=== PATIENT | female | born 1935 | race Caucasian/White ===

== ENCOUNTER 2020-04-23 11:51 | Outpatient (REF) | payer MEDICARE, MEDICAID, SELFPAY ==
--- NOTE | ~2020-04-23 | MM_ITS ---
EXAMINATION: MM SCREENING DIGITAL BREAST TOMOSYNTHESIS, BILATERAL CLINICAL INFORMATION: Screening. Asymptomatic. Age 84. COMPARISON: Mammography: 10/03/2018, 07/07/2017, 10/08/2016, 01/23/2016, 01/15/2016 TECHNIQUE: Digital breast tomosynthesis is performed in both the craniocaudal and mediolateral oblique views along with computer-aided detection (CAD). Synthesized 2D images are generated from the tomosynthesis. FINDINGS: There are scattered areas of fibroglandular density (ACR BI-RADS breast composition Category b). There are no significant changes from prior exams. Again, there is stable nodularity posterior central 6:00 left breast and central mid right breast. There is no developing density or interval mass or architectural abnormality. There are scattered punctate calcifications again seen in each breast. The axilla and skin contours are unremarkable. MM/MM tomosynthesis screening BI IMPRESSION: No significant changes from prior studies. ASSESSMENT: BI-RADS 2: Benign RECOMMENDATION: Routine annual mammography screening. This patient's information was entered into a reminder system with a target due date for their next mammogram.
== END 2020-04-23 11:52 | disposition home or self-care (01) ==
LOC: HO.MAMMO 11:51
PROVIDERS: Visit Provider Internal Medicine
DX: Z12.31 Encounter for screening mammogram for malignant neoplasm of breast (principal)
CPT/HCPCS: 77063; 77067

== ENCOUNTER 2021-05-06 13:20 | Outpatient (REF) | payer MEDICARE, SELFPAY ==
--- NOTE | ~2021-05-06 | MM_ITS ---
EXAMINATION: MM SCREENING DIGITAL BREAST TOMOSYNTHESIS, BILATERAL CLINICAL INFORMATION: Screening. Asymptomatic. COMPARISON: Mammography: 12/21/2020, 10/03/2018, 07/07/2017, 09/23/2016, 01/15/2016 TECHNIQUE: Digital breast tomosynthesis is performed in both the craniocaudal and mediolateral oblique views along with computer-aided detection (CAD). Synthesized 2D images are generated from the tomosynthesis. Additional left MLO view is provided. FINDINGS: There are scattered areas of fibroglandular density (ACR BI-RADS breast composition Category b). Parenchymal pattern is similar to prior studies. There are fibrocystic changes with stable nodularity again seen central 6:00 left breast and central right breast. There is no interval significant mass or architectural abnormality or abnormal calcifications. The axilla and skin contours are unremarkable. There are no significant changes from prior exams. MM/MM tomosynthesis screening BI IMPRESSION: No significant changes from prior studies. ASSESSMENT: BI-RADS 2: Benign RECOMMENDATION: Routine annual mammography screening. This patient's information was entered into a reminder system with a target due date for their next mammogram.
== END 2021-05-06 13:21 | disposition home or self-care (01) ==
LOC: HO.MAMMO 13:20
PROVIDERS: Visit Provider Internal Medicine
DX: Z12.31 Encounter for screening mammogram for malignant neoplasm of breast (principal)
CPT/HCPCS: 77063; 77067

== ENCOUNTER 2021-06-30 11:54 | Outpatient (REF) | payer MEDICARE, SELFPAY ==
[2021-06-30 12:12] LABS: MANUAL DIFF FLAG NO
[2021-06-30 13:25] LABS: Basophils Absolute Auto 0.1 X10*3/uL (0.0-0.2); Eosinophils Absolute Auto 0.2 X10*3/uL (0.0-0.4); Eosinophils Percent Auto 3.1 % (0-4); Hematocrit 43.5 % (37.0-47.0); Hemoglobin 13.9 g/dl (12.0-16.0); Imm Gran Abs Auto 0.01 X10*3/uL (0.00-0.03); Imm Gran Pct Auto 0.2 % (0.0-0.4); Lymphocytes Absolute Auto 1.8 X10*3/uL (1.2-4.9); Lymphocytes Percent Auto 30.5 % (20-40); Mean Corpuscular Hemoglobin 28.5 pg (27.0-33.0); Mean Corpuscular Volume 89.3 fL (80.0-98.0); Mean Platelet Volume 10.3 fL (9.4-12.3); Monocytes Absolute Auto 0.7 X10*3/uL (0.1-1.2); Monocytes Percent Auto 11.7 % (2-11); Neutrophils Absolute Auto 3.1 x10*3/uL (2.0-8.3); Neutrophils Percent Auto 53.5 % (45-73); Platelet Count 239 X10*3/uL (160-400); Red Blood Count 4.87 X10*6/uL (4.20-5.50); Red Cell Distribution Width 13.1 % (11.0-16.0); White Blood Count 5.8 X10*3/uL (4.8-10.8)
[2021-06-30 13:48] LABS: Alanine Aminotransferase 20 U/L (0-31); Albumin Level 4.2 g/dL (3.5-5.0); Alkaline Phosphatase 69 U/L (39-117); Anion Gap 14 (12-20); Aspartate Amino Transferase 26 U/L (5-31); Bilirubin Total 0.5 mg/dL (0.0-1.0); Blood Urea Nitrogen 17 mg/dL (9-16); Calcium 9.7 mg/dL (8.4-10.2); Carbon Dioxide 27 mmol/L (22-29); Chloride 102 mmol/L (96-108); Cholesterol 223 mg/dL; Estimated Glomerular Filt Rate 54; Glucose Fasting 92 mg/dL (60-99); HDL Cholesterol 57 mg/dL; LDL Cholesterol Calculated 139 mg/dl; Potassium 4.4 mmol/L (3.3-5.1); Sodium 139 mmol/L (135-145); Total Protein 7.3 g/dL (6.5-8.0); Triglycerides 139 mg/dL
== END 2021-06-30 11:55 | disposition home or self-care (01) ==
LOC: HO.LAB 11:54
PROVIDERS: PCP Internal Medicine; Visit Provider Internal Medicine
DX: Z00.00 Encounter for general adult medical examination without abnormal findings (principal); E11.9 Type 2 diabetes mellitus without complications
CPT/HCPCS: 36415; 80053; 80061; 85025

== ENCOUNTER 2021-11-03 12:31 | Outpatient (REF) | payer MEDICARE, SELFPAY ==
[2021-11-03 13:05] VITALS: BP 204/93; PULSE 67; RESP 16; TEMP 36.6; O2SAT 98; BMI 17.7
== END 2021-11-03 12:32 | disposition home or self-care (01) ==
LOC: HO.MS 12:31
PROVIDERS: Visit Provider Ophthalmology
PROC: (CPT 66821; principal; 2021-11-03 14:40)
DX: H26.492 Other secondary cataract, left eye (principal); H35.032 Hypertensive retinopathy, left eye; I10 Essential (primary) hypertension; E78.5 Hyperlipidemia, unspecified; Z79.899 Other long term (current) drug therapy
CPT/HCPCS: 66821

== ENCOUNTER 2022-04-02 10:19 | Outpatient (REF) | payer MEDICARE, SELFPAY ==
[2022-04-02 10:32] LABS: MANUAL DIFF FLAG NO
[2022-04-02 11:06] LABS: Basophils Percent Auto 0.7 % (0-2); Eosinophils Absolute Auto 0.1 X10*3/uL (0.0-0.4); Eosinophils Percent Auto 2.4 % (0-4); Hematocrit 43.4 % (37.0-47.0); Imm Gran Abs Auto 0.02 X10*3/uL (0.00-0.03); Imm Gran Pct Auto 0.3 % (0.0-0.4); Lymphocytes Absolute Auto 1.6 X10*3/uL (1.2-4.9); Lymphocytes Percent Auto 27.6 % (20-40); Mean Corpuscular HGB Conc 32.3 g/dl (31.0-35.0); Mean Corpuscular Hemoglobin 28.5 pg (27.0-33.0); Mean Corpuscular Volume 88.4 fL (80.0-98.0); Mean Platelet Volume 9.7 fL (9.4-12.3); Monocytes Absolute Auto 0.5 X10*3/uL (0.1-1.2); Monocytes Percent Auto 9.3 % (2-11); Neutrophils Absolute Auto 3.4 x10*3/uL (2.0-8.3); Neutrophils Percent Auto 59.7 % (45-73); Platelet Count 237 X10*3/uL (160-400); Red Blood Count 4.91 X10*6/uL (4.20-5.50); Red Cell Distribution Width 12.6 % (11.0-16.0); White Blood Count 5.7 X10*3/uL (4.8-10.8)
[2022-04-02 11:40] LABS: Alanine Aminotransferase 20 U/L (0-31); Albumin Level 4.1 g/dL (3.5-5.0); Alkaline Phosphatase 89 U/L (39-117); Anion Gap 9 (12-20); Aspartate Amino Transferase 27 U/L (5-31); Bilirubin Total 0.7 mg/dL (0.0-1.0); Blood Urea Nitrogen 19 mg/dL (9-16); Calcium 9.4 mg/dL (8.4-10.2); Carbon Dioxide 29 mmol/L (22-29); Chloride 104 mmol/L (96-108); Cholesterol 238 mg/dL; Estimated Glomerular Filt Rate 55; Glucose Fasting 89 mg/dL (60-99); HDL Cholesterol 52 mg/dL; LDL Cholesterol Calculated 160 mg/dl; Potassium 4.2 mmol/L (3.3-5.1); Sodium 138 mmol/L (135-145); Total Protein 7.1 g/dL (6.5-8.0); Triglycerides 134 mg/dL
[2022-04-02 11:58] LABS: Thyroid Stimulating Hormone 1.16 uIU/mL (0.32-4.0)
== END 2022-04-02 10:20 | disposition home or self-care (01) ==
LOC: HO.LAB 10:19
PROVIDERS: PCP Internal Medicine; Visit Provider Internal Medicine
DX: E03.9 Hypothyroidism, unspecified (principal); E78.5 Hyperlipidemia, unspecified; N28.9 Disorder of kidney and ureter, unspecified; D64.9 Anemia, unspecified
CPT/HCPCS: 36415; 80053; 80061; 84443; 85025

== ENCOUNTER 2022-05-14 11:48 | Outpatient (REF) | payer MEDICARE, SELFPAY ==
--- NOTE | ~2022-05-14 | MM_ITS ---
EXAMINATION: MM SCREENING DIGITAL BREAST TOMOSYNTHESIS, BILATERAL CLINICAL INFORMATION: Screening. Asymptomatic. COMPARISON: Mammography: 05/06/2021 and studies dating back to 10/30/2014. TECHNIQUE: Digital breast tomosynthesis is performed in both the craniocaudal and mediolateral oblique views along with computer-aided detection (CAD). Synthesized 2D images are generated from the tomosynthesis. FINDINGS: There are scattered areas of fibroglandular density (ACR BI-RADS breast composition Category b). There are no new significant masses, abnormal calcifications, or other abnormalities. There has been waxing and waning of circumscribed densities bilaterally consistent with cysts with no new suspicious dominant mass or grouping of microcalcifications. MM/MM tomosynthesis screening BI IMPRESSION: No significant change. ASSESSMENT: BI-RADS 2: Benign. RECOMMENDATION: Routine annual mammography screening. This patient's information was entered into a reminder system with a target due date for their next mammogram.
== END 2022-05-14 11:49 | disposition home or self-care (01) ==
LOC: HO.MAMMO 11:48
PROVIDERS: PCP Internal Medicine; Visit Provider Internal Medicine
DX: Z12.31 Encounter for screening mammogram for malignant neoplasm of breast (principal)
CPT/HCPCS: 77063; 77067

== ENCOUNTER 2022-09-24 10:36 | Outpatient (AMB) | payer MEDICARE, SELFPAY ==
[2022-09-24 10:38] VITALS: BP 140/82; PULSE 62; O2SAT 98; BMI 22.6
--- NOTE | 2022-09-24 10:38 | MHC.PC.OV ---
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 Accompanied by: Self / Same As Patient Allergies Sulfa (Sulfonamide Antibiotics) Allergy (Unknown, Verified 09/24/22 10:39) Unknown Medication List - Last Reconciled 09/24/22 by Bipin Dai MD duloxetine 20 mg PO DAILY lisinopril 10 mg PO DAILY metoprolol tartrate 12.5 mg (1/2 x 25 mg) PO Q12H Tobacco use date assessed: 09/24/22 Fall risk assessment: 1 Fall in past year Last assessed Fall Risk: 09/24/22 Dental Screening Dental Screen Date: 09/24/22 Did you have a dental visit in the last 12 months?: No Did you have a dental problem in the last 6 months where you did not have access to dental care?: No Was dental information given to patient?: No HPI 6mth f/u HPI Details HTN on Rx; doing well PFSH Medical History (Updated 03/26/22 @ 10:39 by Bipin Dai MD) CAD (coronary artery disease) Hyperlipidemia Surgical History History of cataract surgery History of foot surgery History of heart artery stent Family History Mother No problems noted. Father No problems noted. Social History Housing: House Alcohol intake: never Patient Tobacco Use Status: Former Tobacco user Tobacco use type: Cigarette e-Cigarette/Vaping Use: Never Used Second Hand Smoke Exposure: No service: No Current occupational status: retired Cognitive needs: No Hearing needs: No Vision needs: Yes Questionnaire PHQ-9 Over the last 2 weeks, how often have you been bothered by any of the following problems? 1. Little interest or pleasure in doing things: more than half the days 2. Feeling down, depressed, or hopeless: several days 3. Trouble falling or staying asleep, or sleeping too much: not at all 4. Feeling tired or having little energy: not at all 5. Poor appetite or overeating: not at all 6. Feeling bad about yourself - or that you are a failure or have let yourself or your family down: not at all 7. Trouble concentrating on things, such as reading the newspaper or watching television: not at all 8. Moving or speaking so slowly that other people could have noticed. Or the opposite - being so fidgety or restless that you have been moving around a lot more than usual: not at all 9. Thoughts that you would be better off or of hurting yourself in some way: not at all Total score: 3 Depression Screening Interpretation: Negative 46871 - PHQ-9 Billing: Yes Source: Developed by Drs. Sharan Vuong, Reina Elaine, Ej Major and colleagues, with an educational joselo from [employer]. Thrive Questionnaire Date Thrive assessed: 09/24/22 I am a: Patient What is your living situation today?: I have a steady place to live Within the past 12 months, did the food you bought not last and you didn't have the money to get more?: Never true Within the past 12 months, did you worry whether your food would run out before you got money to buy more?: Never true Do you have trouble paying for medicines?: No Do you have trouble getting transportation to medical appointments?: No Do you have trouble paying your heating and electricity bill?: No Do you have trouble taking care of your child, family member or friend?: No Do you have trouble with day-to-day activities such as bathing, preparing meals, shopping, managing finances, etc.?: No Are you currently unemployed and looking for a job?: No Are you interested in more education?: No Please select the resources that you would like help with: None Currently or been in a relationship where the following occur: no concerns reported AUDIT C Alcohol Use Questionnaire (AUDIT-C) 1. How often do you have a drink containing alcohol?: Never 2. How many drinks containing alcohol do you have on a typical day when you are drinking?: 1 or 2 (0) 3. How often do you have six or more drinks on one occasion?: Never Total Score: 0 Score Reviewed/Action Taken: Yes JULIAN-7 AMB Questionnaire JULIAN-7 Date JULIAN - 7 assessed: 09/24/22 Feeling nervous, anxious, or on edge: 0 = Not at all Not being able to stop or control worryin = Not at all Worrying too much about different things: 0 = Not at all Trouble relaxin = Not at all Being so restless that it is hard to sit still: 0 = Not at all Becoming easily annoyed or irritable: 0 = Not at all Feeling afraid as if something awful might happen: 0 = Not at all Total JULIAN-7 score (0-4 normal; 5-9 mild; 10-14 moderate; 15-21 severe): 0 Source: Developed by Drs. Sharan Vuong, Reina Elaine, Ej Major and colleagues, with an educational joselo from [employer]. JULIAN-7 Assessment Billing JULIAN-7 Assessment Tool: JULIAN-7 Assessment 55066 Review of Systems Const Denies chills, Denies headache(s) and Denies weight loss ENT Denies headache(s) Card Denies chest pain, Denies syncope, Denies irregular heart rhythm and Denies dyspnea Resp Denies chest congestion, Denies cough and Denies dyspnea GI Denies abdominal pain, Denies change in stool character, Denies nausea and Denies vomiting Musc Denies deformity and Denies joint swelling Neuro Denies syncope and Denies headache(s) Physical exam (Primary Care) Vital Signs: Last Vital Signs Pulse 62 09/24/22 10:38 BP 140/82 H 09/24/22 10:38 Pulse Ox 98 09/24/22 10:38 Oxygen Delivery Method Room Air 09/24/22 10:38 BMI result Body Mass Index 22.6 Tobacco/Smoking Status: Tobacco use Status Tobacco use date assessed 09/24/22 09/24/22 10:42 Patient Tobacco Use Status Former Tobacco user 09/24/22 10:42 Tobacco use type Cigarette 09/24/22 10:42 e-Cigarette/Vaping Use Never Used 09/24/22 10:42 PHQ-9: PHQ-9 Score PHQ-9: Total score 3 09/24/22 10:46 Depression Screening Interpretation: Negative Thrive Assessment: Date of Thrive Assessment Date Thrive assessed 09/24/22 09/24/22 10:42 Currently or been in a relationship where the following occur: no concerns reported Const General: cooperative, comfortable and no acute distress Resp Effort & Inspection: normal respiratory effort Auscultation: clear to auscultation bilaterally Percussion: percussion normal Cardio Jugular venous distension: no JVD Rate: regular rate Rhythm: regular rhythm GI Inspection: Yes normal to inspection Assessment and Plan Assessment & Plan (1) Hypertension: Code(s): I10 - Essential (primary) hypertension Coding Level of Care Code Est Pt Level 3 (95803) Diagnoses Hypertension I10 Additional Codes JULIAN-7 Assessment Billing - JULIAN-7 Assessment Tool: JULIAN-7 Assessment 46724 ([id number])
== END 2022-09-24 11:01 | disposition home or self-care (01) ==
PROVIDERS: Visit Provider Internal Medicine
DX: I10 Essential (primary) hypertension (principal)
CPT/HCPCS: 99213

== ENCOUNTER 2023-01-15 11:11 | Outpatient (AMB) | payer MEDICARE, SELFPAY ==
[2023-01-15 11:15] VITALS: BP 136/60; PULSE 76; O2SAT 97; BMI 22.9
--- NOTE | 2023-01-15 11:15 | MHC.PC.OV ---
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 Allergies Sulfa (Sulfonamide Antibiotics) Allergy (Unknown, Verified 01/15/23 11:16) Unknown Medication List - Last Reconciled 01/15/23 by Bipin Dai MD duloxetine 20 mg PO DAILY lisinopril 10 mg PO DAILY metoprolol tartrate 12.5 mg (1/2 x 25 mg) PO Q12H Tobacco use date assessed: 09/24/22 Fall risk assessment: 1 Fall in past year Last assessed Fall Risk: 01/15/23 Dental Screening Dental Screen Date: 01/15/23 Did you have a dental visit in the last 12 months?: No Did you have a dental problem in the last 6 months where you did not have access to dental care?: No Was dental information given to patient?: Patient has dentist HPI Rash on back of neck and shoulders HPI Details rash on upper back consistent with contact dermatitis PFSH Medical History CAD (coronary artery disease) Hyperlipidemia Surgical History History of foot surgery History of cataract surgery History of heart artery stent Family History Mother No problems noted. Father No problems noted. Social History Housing: House Alcohol intake: never Patient Tobacco Use Status: Former Tobacco user Tobacco use type: Cigarette e-Cigarette/Vaping Use: Never Used Second Hand Smoke Exposure: No service: No Current occupational status: retired Cognitive needs: No Hearing needs: No Vision needs: Yes Questionnaire PHQ-9 Over the last 2 weeks, how often have you been bothered by any of the following problems? 1. Little interest or pleasure in doing things: more than half the days 2. Feeling down, depressed, or hopeless: several days 3. Trouble falling or staying asleep, or sleeping too much: not at all 4. Feeling tired or having little energy: not at all 5. Poor appetite or overeating: not at all 6. Feeling bad about yourself - or that you are a failure or have let yourself or your family down: not at all 7. Trouble concentrating on things, such as reading the newspaper or watching television: not at all 8. Moving or speaking so slowly that other people could have noticed. Or the opposite - being so fidgety or restless that you have been moving around a lot more than usual: not at all 9. Thoughts that you would be better off or of hurting yourself in some way: not at all Total score: 3 Depression Screening Interpretation: Negative Depression Screening Done: Yes 14796 - PHQ-9 Billing: Yes Source: Developed by Drs. Sharan Vuong, Ej Aj and colleagues, with an educational joselo from [employer]. Thrive Questionnaire Date Thrive assessed: 09/24/22 AUDIT C Alcohol Use Questionnaire (AUDIT-C) 1. How often do you have a drink containing alcohol?: Never 2. How many drinks containing alcohol do you have on a typical day when you are drinking?: 1 or 2 (0) 3. How often do you have six or more drinks on one occasion?: Never Total Score: 0 Score Reviewed/Action Taken: Yes JULIAN-7 AMB Questionnaire JULIAN-7 Date JULIAN - 7 assessed: 09/24/22 Not being able to stop or control worryin = Several days Source: Developed by Drs. Sharan Vuong, Reina Elaine, Ej Major and colleagues, with an educational joselo from [employer]. Review of Systems Const Denies chills, Denies headache(s) and Denies weight loss ENT Denies headache(s) Card Denies chest pain, Denies syncope, Denies irregular heart rhythm and Denies dyspnea Resp Denies chest congestion, Denies cough and Denies dyspnea GI Denies abdominal pain, Denies change in stool character, Denies nausea and Denies vomiting Musc Denies deformity and Denies joint swelling Neuro Denies syncope and Denies headache(s) Physical exam (Primary Care) Vital Signs: Last Vital Signs Pulse 76 01/15/23 11:15 BP 136/60 01/15/23 11:15 Pulse Ox 97 01/15/23 11:15 Oxygen Delivery Method Room Air 01/15/23 11:15 BMI result Body Mass Index 22.9 Tobacco/Smoking Status: Tobacco use Status Tobacco use date assessed 09/24/22 01/15/23 11:22 Patient Tobacco Use Status Former Tobacco user 01/15/23 11:22 Tobacco use type Cigarette 01/15/23 11:22 e-Cigarette/Vaping Use Never Used 01/15/23 11:22 PHQ-9: PHQ-9 Score PHQ-9: Total score 3 01/15/23 11:45 Depression Screening Interpretation: Negative Thrive Assessment: Date of Thrive Assessment Date Thrive assessed 09/24/22 01/15/23 11:22 Const General: cooperative, comfortable, no acute distress and alert Neck Neck: Yes no lymphadenopathy Thyroid: Thyroid normal Resp Effort & Inspection: normal respiratory effort Auscultation: clear to auscultation bilaterally Percussion: percussion normal Cardio Jugular venous distension: no JVD Palpation: normal PMI Rate: regular rate Rhythm: regular rhythm Heart sounds: S1 normal heart sound present and S2 normal heart sound present GI Inspection: Yes normal to inspection Palpation (GI): No hepatosplenomegaly present Skin Other: contact dermatitis on back Extrem General: Yes no clubbing, cyanosis or edema Office Procedures Flu Questionnaire Does the patient have a severe egg allergy?: No Does the patient have severe life threatening allergies?: No Does the patient have a fever or illness today?: No Has the patient ever had Guillain-Dille Syndrome?: No Has the patient ever had any past reaction to a flu shot?: No Immunizations flu vacc [id number] 6mos up(PF) 60 mcg(15 mcgx4)/0.5 mL IM syringe Performing Provider: Bipin Dai MD Performing Location: [facility] Administered by: FRAN Saravia on 01/15/23 11:45 Dose Route Admin Location Dispensed Lot Number Expiration Date NDC [employer] 0.5 mL IM Left Deltoid 0.5 mL [id number] 09/12/23 75879-007-27 [employer] VIS Given Date VIS Provided VIS Publication Date 01/15/23 Single Vaccine 20 Eligibility Eligibility Date Funding Source Not [facility] Eligible 01/15/23 Private Assessment and Plan Assessment & Plan (1) Contact dermatitis: Code(s): L25.9 - Unspecified contact dermatitis, unspecified cause Plan: hydrocortisone cream Orders: Orders Influenza [id number] Immunization Today Z23 - Encounter for immunization ECG 12 lead EKG Today R07.9 - Chest pain, unspecified XR foot LT 2V Today M79.672 - Pain in left foot Coding Level of Care Code Est Pt Level 3 (63056) Diagnoses Contact dermatitis L25.9
== END 2023-01-15 11:46 | disposition home or self-care (01) ==
PROVIDERS: PCP Internal Medicine; Visit Provider Internal Medicine
DX: Z23 Encounter for immunization (principal); L25.9 Unspecified contact dermatitis, unspecified cause
CPT/HCPCS: 90471; 90686; 99213

== ENCOUNTER 2023-01-15 11:52 | Outpatient (REF) | payer MEDICARE, SELFPAY ==
--- NOTE | ~2023-01-15 | XR_ITS ---
EXAMINATION: XR FOOT, LEFT CLINICAL INFORMATION: Pain in left foot. COMPARISON: None available. TECHNIQUE: AP, lateral, and oblique views of the left foot. FINDINGS: Tiny plantar calcaneal spur. Mild calcification at the site of Achilles tendon insertion at the dorsal aspect of the calcaneus. The bones are diffusely demineralized. Screw traverses the distal aspect of the 1st metatarsal with expected appearance of prior surgery and abundant calcifications in the adjacent soft tissue. Moderate degenerative changes in the first metatarsophalangeal joint with joint space narrowing. Small ulceration at the medial base of the 1st digit proximal phalanx. Attenuation of the distal third of the 5th metatarsal is characteristic of prior surgical intervention. The 4th toe is flexed, limiting evaluation of irregular calcifications in the soft tissues of the distal toe. XR/XR foot LT 2V IMPRESSION: 1. Degenerative changes as detailed above. 2. Presumed post surgical changes of the 5th metatarsal and great toe as detailed above. Correlation with clinical history recommended to determine further management. Direct correlation with prior images is recommended and if prior images are provided, an addendum will be dictated. MRI could be considered for further evaluation based on the level of clinical concern.
--- NOTE | 2023-01-15 11:57 | ECG_ITS ---
Test Reason : chest pain Blood Pressure : / mmHG Vent. Rate : 065 BPM Atrial Rate : 065 BPM P-R Int : 188 ms QRS Dur : 082 ms QT Int : 406 ms P-R-T Axes : 092 035 021 degrees QTc Int : 422 ms Normal sinus rhythm Normal ECG When compared with ECG of 30-OCT-2018 09:44, Premature atrial complexes are no longer Present Borderline criteria for Inferior infarct are no longer Present Referred By: Bipin Dai Electronically Signed By:SERGIO FUENTES MD
== END 2023-01-15 11:53 | disposition home or self-care (01) ==
LOC: HO.XRAY 11:52
PROVIDERS: PCP Internal Medicine; Visit Provider Internal Medicine
DX: R07.9 Chest pain, unspecified (principal); M79.672 Pain in left foot
CPT/HCPCS: 73620; 93005

== ENCOUNTER 2023-04-01 09:48 | Outpatient (AMB) | payer MEDICARE, SELFPAY ==
[2023-04-01 09:49] VITALS: BP 140/72; PULSE 62; O2SAT 98; BMI 22.8
--- NOTE | 2023-04-01 09:49 | MHC.PC.OV ---
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 Accompanied by: Self / Same As Patient Allergies Sulfa (Sulfonamide Antibiotics) Allergy (Unknown, Verified 04/01/23 09:50) Unknown Medication List - Last Reconciled 04/01/23 by Bipin Dai MD duloxetine 20 mg PO DAILY lisinopril 10 mg PO DAILY metoprolol tartrate 12.5 mg (1/2 x 25 mg) PO Q12H Tobacco use date assessed: 04/01/23 Fall risk assessment: 1 Fall in past year Last assessed Fall Risk: 04/01/23 Dental Screening Dental Screen Date: 04/01/23 Did you have a dental visit in the last 12 months?: Yes Did you have a dental problem in the last 6 months where you did not have access to dental care?: No Was dental information given to patient?: Patient has dentist HPI Annual Exam HPI Details HTN on Rx; cognitive decline stable [facility] Medical History CAD (coronary artery disease) Hyperlipidemia Surgical History History of foot surgery History of cataract surgery History of heart artery stent Family History Mother No problems noted. Father No problems noted. Social History Housing: House Alcohol intake: never Patient Tobacco Use Status: Former Tobacco user Tobacco use type: Cigarette e-Cigarette/Vaping Use: Never Used Second Hand Smoke Exposure: No service: No Current occupational status: retired Cognitive needs: No Hearing needs: No Vision needs: Yes Questionnaire PHQ-9 Over the last 2 weeks, how often have you been bothered by any of the following problems? 1. Little interest or pleasure in doing things: more than half the days 2. Feeling down, depressed, or hopeless: several days 3. Trouble falling or staying asleep, or sleeping too much: not at all 4. Feeling tired or having little energy: not at all 5. Poor appetite or overeating: not at all 6. Feeling bad about yourself - or that you are a failure or have let yourself or your family down: not at all 7. Trouble concentrating on things, such as reading the newspaper or watching television: not at all 8. Moving or speaking so slowly that other people could have noticed. Or the opposite - being so fidgety or restless that you have been moving around a lot more than usual: not at all 9. Thoughts that you would be better off or of hurting yourself in some way: not at all Total score: 3 Depression Screening Interpretation: Negative Depression Screening Done: Yes 78391 - PHQ-9 Billing: Yes Source: Developed by Drs. Sharan Vuong, Reina Elaine, Ej Major and colleagues, with an educational joselo from [employer]. Thrive Questionnaire Date Thrive assessed: 04/01/23 I am a: Patient What is your living situation today?: I have a steady place to live Within the past 12 months, did the food you bought not last and you didn't have the money to get more?: Never true Within the past 12 months, did you worry whether your food would run out before you got money to buy more?: Never true Do you have trouble paying for medicines?: No Do you have trouble getting transportation to medical appointments?: No Do you have trouble paying your heating and electricity bill?: No Do you have trouble taking care of your child, family member or friend?: No Do you have trouble with day-to-day activities such as bathing, preparing meals, shopping, managing finances, etc.?: No Are you currently unemployed and looking for a job?: No Are you interested in more education?: No Please select the resources that you would like help with: None AUDIT C Alcohol Use Questionnaire (AUDIT-C) 1. How often do you have a drink containing alcohol?: Never 2. How many drinks containing alcohol do you have on a typical day when you are drinking?: 1 or 2 (0) 3. How often do you have six or more drinks on one occasion?: Never Total Score: 0 Score Reviewed/Action Taken: Yes JULIAN-7 AMB Questionnaire JLUIAN-7 Date JULIAN - 7 assessed: 04/01/23 Feeling nervous, anxious, or on edge: 0 = Not at all Not being able to stop or control worryin = Not at all Worrying too much about different things: 0 = Not at all Trouble relaxin = Not at all Being so restless that it is hard to sit still: 0 = Not at all Becoming easily annoyed or irritable: 0 = Not at all Feeling afraid as if something awful might happen: 0 = Not at all Total JULIAN-7 score (0-4 normal; 5-9 mild; 10-14 moderate; 15-21 severe): 0 Source: Developed by Drs. Sharan Vuong, Reina Elaine, Ej Major and colleagues, with an educational joselo from [employer]. JULIAN-7 Assessment Billing JULIAN-7 Assessment Tool: JULIAN-7 Assessment 08696 Review of Systems Const Denies chills, Denies fatigue, Denies headache(s) and Denies weight loss Eyes Denies change in vision, Denies diplopia and Denies eye pain ENT Denies vertigo, Denies dizziness, Denies headache(s) and Denies nasal discharge Card Denies chest pain, Denies rapid heart rate and Denies dyspnea on exertion Resp Denies chest congestion, Denies cough, Denies pain with cough and Denies dyspnea on exertion GI Denies abdominal pain, Denies hematochezia and Denies change in bowel habits Musc Denies myalgias, Denies arthralgias and Denies joint swelling Skin/Breast Denies lesions and Denies unusual bruising Neuro Denies vertigo, Denies dizziness, Denies headache(s) and Denies focal weakness Endo Denies fatigue Physical exam (Primary Care) Vital Signs: Last Vital Signs Pulse 62 04/01/23 09:49 BP 140/72 H 04/01/23 09:49 Pulse Ox 98 04/01/23 09:49 Oxygen Delivery Method Room Air 04/01/23 09:49 BMI result Body Mass Index 22.8 Tobacco/Smoking Status: Tobacco use Status Tobacco use date assessed 04/01/23 04/01/23 09:51 Patient Tobacco Use Status Former Tobacco user 04/01/23 09:51 Tobacco use type Cigarette 04/01/23 09:51 e-Cigarette/Vaping Use Never Used 04/01/23 09:51 PHQ-9: PHQ-9 Score PHQ-9: Total score 3 04/01/23 10:15 Depression Screening Interpretation: Negative Thrive Assessment: Date of Thrive Assessment Date Thrive assessed 04/01/23 04/01/23 09:51 Const General: cooperative, healthy appearing and no acute distress Orientation/consciousness: oriented to person, oriented to place and oriented to time HENMT Head: Yes normal to inspection, Yes normocephalic and Yes atraumatic Mouth: Normal oral and palatal mucosa present and tongue normal Throat: Yes posterior oropharynx normal and Yes uvula midline Eyes General: appearance normal, both eyes and all related structures Neck Neck: Yes normal visual inspection, Yes full ROM and Yes no lymphadenopathy Thyroid: Thyroid normal Carotids: normal carotid upstroke Chest Chest palpation & inspection: normal inspection of the chest Resp Effort & Inspection: normal respiratory effort and able to speak in complete sentences Auscultation: clear to auscultation bilaterally Cardio Jugular venous distension: no JVD Palpation: normal PMI Rate: regular rate Rhythm: regular rhythm Heart sounds: S1 normal heart sound present and S2 normal heart sound present GI Inspection: Yes normal to inspection Palpation (GI): Soft to palpation and No hepatosplenomegaly present Auscultation: normal bowel sounds General: Yes no CVA tenderness Back/Spine/Pelvis Back: no CVA tenderness Skin General skin exam: no rashes or lesions noted Neuro General: oriented to person, oriented to place and oriented to time Extrem General: Yes normal to inspection and Yes full ROM Assessment and Plan Assessment & Plan (1) Physical exam: Code(s): Z00.00 - Encounter for general adult medical examination without abnormal findings Plan: stable; do labs (2) Hypertension: Code(s): I10 - Essential (primary) hypertension Plan: stable; same rx (3) Dementia: Code(s): F03.90 - Unspecified dementia, unspecified severity, without behavioral disturbance, psychotic disturbance, mood disturbance, and anxiety Plan: stable Orders: Orders Thyroid Stimulating Hormone Today E03.9 - Hypothyroidism, unspecified Complete Blood Count Auto Diff Today D64.9 - Anemia, unspecified Comprehensive [place]. Panel Fast Today N28.9 - Disorder of kidney and ureter, unspecified Coding Level of Care Code Est Pt Prev Care >65y(93866) Diagnoses Physical exam Z00.00 Hypertension I10 Dementia F03.90 Additional Codes JULIAN-7 Assessment Billing - JULIAN-7 Assessment Tool: JULIAN-7 Assessment 36021 ([id number])
== END 2023-04-01 10:16 | disposition home or self-care (01) ==
PROVIDERS: Visit Provider Internal Medicine
DX: Z00.00 Encounter for general adult medical examination without abnormal findings (principal); F03.90 Unspecified dementia, unspecified severity, without behavioral disturbance, psychotic disturbance, mood disturbance, and anxiety; I10 Essential (primary) hypertension
CPT/HCPCS: 99397

== ENCOUNTER 2023-05-17 10:01 | Outpatient (REF) | payer MEDICARE, SELFPAY ==
[2023-05-17 13:26] LABS: MANUAL DIFF FLAG NO
[2023-05-17 13:39] LABS: Basophils Percent Auto 0.7 % (0-2); Eosinophils Absolute Auto 0.2 X10*3/uL (0.0-0.4); Eosinophils Percent Auto 2.5 % (0-4); Hematocrit 43.8 % (37.0-47.0); Hemoglobin 14.2 g/dl (12.0-16.0); Imm Gran Abs Auto 0.01 X10*3/uL (0.00-0.03); Imm Gran Pct Auto 0.2 % (0.0-0.4); Lymphocytes Absolute Auto 2.1 X10*3/uL (1.2-4.9); Mean Corpuscular HGB Conc 32.4 g/dl (31.0-35.0); Mean Corpuscular Hemoglobin 28.7 pg (27.0-33.0); Mean Corpuscular Volume 88.5 fL (80.0-98.0); Monocytes Absolute Auto 0.7 X10*3/uL (0.1-1.2); Monocytes Percent Auto 10.8 % (2-11); Neutrophils Absolute Auto 3.1 x10*3/uL (2.0-8.3); Neutrophils Percent Auto 51.8 % (45-73); Platelet Count 238 X10*3/uL (160-400); Red Blood Count 4.95 X10*6/uL (4.20-5.50); Red Cell Distribution Width 13.1 % (11.0-16.0)
[2023-05-17 14:20] LABS: Alanine Aminotransferase 23 U/L (0-31); Albumin Level 4.1 g/dL (3.5-5.0); Alkaline Phosphatase 83 U/L (39-117); Anion Gap 10 (12-20); Aspartate Amino Transferase 29 U/L (5-31); Bilirubin Total 0.4 mg/dL (0.0-1.0); Blood Urea Nitrogen 15 mg/dL (9-16); Calcium 9.5 mg/dL (8.4-10.2); Carbon Dioxide 29 mmol/L (22-29); Chloride 104 mmol/L (96-108); Estimated Glomerular Filt Rate 54; Glucose Fasting 89 mg/dL (60-99); Potassium 4.3 mmol/L (3.3-5.1); Sodium 139 mmol/L (135-145); Total Protein 7.6 g/dL (6.5-8.0)
[2023-05-17 14:21] LABS: Thyroid Stimulating Hormone 0.88 uIU/mL (0.32-4.0)
== END 2023-05-17 10:02 | disposition home or self-care (01) ==
LOC: HO.HMGCLDS 10:01
PROVIDERS: PCP Internal Medicine; Visit Provider Internal Medicine
DX: E03.9 Hypothyroidism, unspecified (principal); D64.9 Anemia, unspecified; N28.9 Disorder of kidney and ureter, unspecified
CPT/HCPCS: 36415; 80053; 84443; 85025

== ENCOUNTER → 2023-06-03 13:00 | Outpatient (BNV) | payer MEDICARE, SELFPAY | PROVIDERS: PCP Internal Medicine; Visit Provider Radiology Diagnostic Radiology | DX: Z12.31 Encounter for screening mammogram for malignant neoplasm of breast (principal) | CPT/HCPCS: 77063; 77067 ==

== ENCOUNTER 2023-06-03 13:01 | Outpatient (REF) | payer MEDICARE, SELFPAY | END 2023-06-03 13:02 | disposition home or self-care (01) | LOC: HO.MAMMO 13:01 | PROVIDERS: PCP Internal Medicine; Visit Provider Internal Medicine | DX: Z12.31 Encounter for screening mammogram for malignant neoplasm of breast (principal) | CPT/HCPCS: 77063; 77067 ==

== ENCOUNTER 2024-03-24 09:40 | Outpatient (REF) | payer MEDICARE, SELFPAY ==
[2024-03-24 12:58] LABS: MANUAL DIFF FLAG NO
[2024-03-24 13:04] LABS: Basophils Absolute Auto 0.1 X10*3/uL (0.0-0.2); Basophils Percent Auto 1.1 % (0-2); Eosinophils Absolute Auto 0.2 X10*3/uL (0.0-0.4); Eosinophils Percent Auto 3.2 % (0-4); Hematocrit 45.6 % (37.0-47.0); Imm Gran Abs Auto 0.01 X10*3/uL (0.00-0.03); Imm Gran Pct Auto 0.2 % (0.0-0.4); Lymphocytes Absolute Auto 1.9 X10*3/uL (1.2-4.9); Lymphocytes Percent Auto 33.3 % (20-40); Mean Corpuscular HGB Conc 32.9 g/dl (31.0-35.0); Mean Corpuscular Hemoglobin 29.1 pg (27.0-33.0); Mean Corpuscular Volume 88.5 fL (80.0-98.0); Mean Platelet Volume 10.6 fL (9.4-12.3); Monocytes Absolute Auto 0.6 X10*3/uL (0.1-1.2); Monocytes Percent Auto 10.9 % (2-11); Neutrophils Absolute Auto 2.9 x10*3/uL (2.0-8.3); Neutrophils Percent Auto 51.3 % (45-73); Platelet Count 256 X10*3/uL (160-400); Red Blood Count 5.15 X10*6/uL (4.20-5.50); Red Cell Distribution Width 12.8 % (11.0-16.0); White Blood Count 5.6 X10*3/uL (4.8-10.8)
[2024-03-24 13:30] LABS: Alanine Aminotransferase 31 U/L (0-31); Albumin Level 4.1 g/dL (3.5-5.0); Alkaline Phosphatase 82 U/L (39-117); Anion Gap 12 (12-20); Aspartate Amino Transferase 34 U/L (5-31); Bilirubin Total 0.6 mg/dL (0.0-1.0); Blood Urea Nitrogen 19 mg/dL (9-16); Calcium 9.6 mg/dL (8.4-10.2); Carbon Dioxide 29 mmol/L (22-29); Chloride 105 mmol/L (96-108); Cholesterol 223 mg/dL (<200); Estimated Glomerular Filt Rate 49; Glucose Fasting 85 mg/dL (60-99); HDL Cholesterol 49 mg/dL (>40); LDL Cholesterol Calculated 147 mg/dL (<100); Potassium 4.6 mmol/L (3.3-5.1); Sodium 141 mmol/L (135-145); Total Protein 7.6 g/dL (6.5-8.0); Triglycerides 137 mg/dL (<150)
[2024-03-24 13:46] LABS: Thyroid Stimulating Hormone 0.91 uIU/mL (0.32-4.0)
== END 2024-03-24 09:41 | disposition home or self-care (01) ==
LOC: HO.HMGCLDS 09:40
PROVIDERS: PCP Internal Medicine; Visit Provider Internal Medicine
DX: Z13.9 Encounter for screening, unspecified (principal); Z13.220 Encounter for screening for lipoid disorders; Z13.29 Encounter for screening for other suspected endocrine disorder; Z13.0 Encounter for screening for diseases of the blood and blood-forming organs and certain disorders involving the immune mechanism
CPT/HCPCS: 36415; 80053; 80061; 84443; 85025

== ENCOUNTER 2024-04-06 10:10 | Outpatient (AMB) | payer MEDICARE, SELFPAY ==
--- NOTE | 2024-04-06 10:15 | A.OFFPC_ITS ---
Vital Signs 04/06/24 10:16 Height 5 ft 6 in Weight 141 lb 8 oz BMI 22.8 BP 130/70 Blood Pressure Location Rt brachial Position Sitting Pulse 95 Pulse Source Pulse Oximeter Temp 97.3 F Temp Source Skin Pulse Oximetry (%) 93 Oxygen Delivery Method Room Air Intake Visit Reasons: Annual Exam Intake Note: Patient is here today for a physical. 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 Head Of Music: Present Accompanied by: Son Allergies Sulfa (Sulfonamide Antibiotics) Allergy (Unknown, Verified 04/06/24 10:16) Unknown Medication List - Last Reconciled 04/06/24 by Bipin Dai MD duloxetine 20 mg PO DAILY lisinopril 10 mg PO DAILY metoprolol tartrate 12.5 mg (1/2 x 25 mg) PO Q12H Tobacco use date assessed: 04/06/24 Fall risk assessment: No Falls in past year Last assessed Fall Risk: 04/06/24 Dental Screening Dental Screen Date: 04/06/24 Did you have a dental visit in the last 12 months?: No Did you have a dental problem in the last 6 months where you did not have access to dental care?: No Was dental information given to patient?: No HPI Annual Exam HPI Details hypertension and dementia; stable [facility] Medical History CAD (coronary artery disease) Hyperlipidemia Surgical History History of foot surgery History of cataract surgery History of heart artery stent Family History (Updated 04/06/24 @ 10:15 by FRAN Jeffers) Mother No problems noted. Father No problems noted. Social History Housing: House Alcohol intake: never Patient Tobacco Use Status: Former Tobacco user Tobacco use type: Cigarette e-Cigarette/Vaping Use: Never Used Second Hand Smoke Exposure: Yes service: No Current occupational status: retired Cognitive needs: No Hearing needs: No Vision needs: Yes Questionnaire PHQ-9 Over the last 2 weeks, how often have you been bothered by any of the following problems? 1. Little interest or pleasure in doing things: not at all 2. Feeling down, depressed, or hopeless: not at all 3. Trouble falling or staying asleep, or sleeping too much: not at all 4. Feeling tired or having little energy: several days 5. Poor appetite or overeating: not at all 6. Feeling bad about yourself - or that you are a failure or have let yourself or your family down: not at all 7. Trouble concentrating on things, such as reading the newspaper or watching television: nearly every day 8. Moving or speaking so slowly that other people could have noticed. Or the opposite - being so fidgety or restless that you have been moving around a lot more than usual: nearly every day 9. Thoughts that you would be better off or of hurting yourself in some way: not at all Total score: 7 Depression Screening Interpretation: Positive Depression Screening Done: Yes Source: Developed by Drs. Sharan Vuong, Reina Elaine, Ej Major and colleagues, with an educational joselo from [employer] Thrive Questionnaire Date Thrive assessed: 04/06/24 I am a: Patient What is your living situation today?: I have a steady place to live Within the past 12 months, did the food you bought not last and you didn't have the money to get more?: Sometimes True Within the past 12 months, did you worry whether your food would run out before you got money to buy more?: Never true Do you have trouble paying for medicines?: No Do you have trouble getting transportation to medical appointments?: Yes Do you have trouble paying your heating and electricity bill?: No Do you have trouble taking care of your child, family member or friend?: No Do you have trouble with day-to-day activities such as bathing, preparing meals, shopping, managing finances, etc.?: No Are you currently unemployed and looking for a job?: No Are you interested in more education?: No Please select the resources that you would like help with: Care for elder or disabled Currently or been in a relationship where the following occur: No concerns reported THRIVE Score: 2 AUDIT C Alcohol Use Questionnaire (AUDIT-C) 1. How often do you have a drink containing alcohol?: Never Total Score: 0 JULIAN-7 AMB Questionnaire JULIAN-7 Date JULIAN - 7 assessed: 04/06/24 Feeling nervous, anxious, or on edge: 3 = Nearly every day Not being able to stop or control worryin = Several days Worrying too much about different things: 1 = Several days Trouble relaxin = Not at all Being so restless that it is hard to sit still: 0 = Not at all Becoming easily annoyed or irritable: 0 = Not at all Feeling afraid as if something awful might happen: 0 = Not at all Total JULIAN-7 score (0-4 normal; 5-9 mild; 10-14 moderate; 15-21 severe): 5 Source: Developed by Drs. Sharan Vuong, Reina Elaine, Ej Major and colleagues, with an educational joselo from [employer] Review of Systems Const Denies chills, Denies fatigue, Denies headache(s) and Denies weight loss Eyes Denies change in vision, Denies diplopia and Denies eye pain ENT Denies vertigo, Denies dizziness, Denies headache(s) and Denies nasal discharge Card Denies chest pain, Denies rapid heart rate and Denies dyspnea on exertion Resp Denies chest congestion, Denies cough, Denies pain with cough and Denies dyspnea on exertion GI Denies abdominal pain, Denies hematochezia and Denies change in bowel habits Musc Denies myalgias, Denies arthralgias and Denies joint swelling Skin/Breast Denies lesions and Denies unusual bruising Neuro Denies vertigo, Denies dizziness, Denies headache(s) and Denies focal weakness Endo Denies fatigue Physical exam (Primary Care) Vital Signs: Last Vital Signs Temp 97.3 F 04/06/24 10:16 Pulse 95 04/06/24 10:16 BP 130/70 04/06/24 10:16 Pulse Ox 93 04/06/24 10:16 Oxygen Delivery Method Room Air 04/06/24 10:16 BMI result Body Mass Index 22.8 Tobacco/Smoking Status: Tobacco use Status Tobacco use date assessed 04/06/24 04/06/24 10:23 Patient Tobacco Use Status Former Tobacco user 04/06/24 10:23 Tobacco use type Cigarette 04/06/24 10:23 e-Cigarette/Vaping Use Never Used 04/06/24 10:23 PHQ-9: PHQ-9 Score PHQ-9: Total score 7 01/23/25 10:23 Depression Screening Interpretation: Positive Thrive Assessment: Date of Thrive Assessment Date Thrive assessed 04/06/24 04/06/24 10:23 Currently or been in a relationship where the following occur: No concerns reported Const General: cooperative, healthy appearing and no acute distress Orientation/consciousness: oriented to person, oriented to place and oriented to time HENMT Head: Yes normal to inspection, Yes normocephalic and Yes atraumatic Mouth: Normal oral and palatal mucosa present and tongue normal Throat: Yes posterior oropharynx normal and Yes uvula midline Eyes General: appearance normal, both eyes and all related structures Neck Neck: Yes normal visual inspection, Yes full ROM and Yes no lymphadenopathy Thyroid: Thyroid normal Carotids: normal carotid upstroke Chest Chest palpation & inspection: normal inspection of the chest Resp Effort & Inspection: normal respiratory effort and able to speak in complete sentences Auscultation: clear to auscultation bilaterally Cardio Jugular venous distension: no JVD Palpation: normal PMI Rate: regular rate Rhythm: regular rhythm Heart sounds: S1 normal heart sound present and S2 normal heart sound present GI Inspection: Yes normal to inspection Palpation (GI): Soft to palpation and No hepatosplenomegaly present Auscultation: normal bowel sounds General: Yes no CVA tenderness Back/Spine/Pelvis Back: no CVA tenderness Skin General skin exam: no rashes or lesions noted Neuro General: oriented to person, oriented to place and oriented to time Extrem General: Yes normal to inspection and Yes full ROM Coding Level of Care Code Est Pt Prev Care >65y(48677) Diagnoses Physical exam Z00.00 Hypertension I10 Dementia F03.90 Assessment & Plan Assessment & Plan (1) Physical exam: Code(s): Z00.00 - Encounter for general adult medical examination without abnormal findings Category: Medical Plan: stable; do labs (2) Hypertension: Code(s): I10 - Essential (primary) hypertension Category: Medical Plan: stable; same rx (3) Dementia: Code(s): F03.90 - Unspecified dementia, unspecified severity, without behavioral disturbance, psychotic disturbance, mood disturbance, and anxiety Category: Medical Plan: stable; same rx Orders: Orders Lipid Panel Today Z13.220 - Encounter for screening for lipoid disorders Comprehensive [place]. Panel Fast Today Z13.9 - Encounter for screening, unspecified Thyroid Stimulating Hormone Today Z13.29 - Encounter for screening for other suspected endocrine disorder Complete Blood Count Auto Diff Today Z13.0 - Encounter for screening for diseases of the blood and blood-forming organs and certain disorders involving the immune mechanism Referrals Podiatry Referral M20.40 - Other hammer toe(s) (acquired), unspecified foot Medications: Refilled lisinopril 10 mg PO DAILY 90 tabs 8RF
[2024-04-06 10:16] VITALS: BP 130/70; PULSE 95; TEMP 36.3; O2SAT 93; BMI 22.8
== END 2024-04-06 10:57 | disposition home or self-care (01) ==
PROVIDERS: PCP Internal Medicine; Visit Provider Internal Medicine
DX: Z00.00 Encounter for general adult medical examination without abnormal findings (principal); I10 Essential (primary) hypertension; F03.90 Unspecified dementia, unspecified severity, without behavioral disturbance, psychotic disturbance, mood disturbance, and anxiety

== ENCOUNTER → 2024-04-06 10:10 | Outpatient (BNVA) | payer MEDICARE, SELFPAY | PROVIDERS: PCP Internal Medicine; Visit Provider Internal Medicine | DX: Z00.00 Encounter for general adult medical examination without abnormal findings (principal); I10 Essential (primary) hypertension; F03.90 Unspecified dementia, unspecified severity, without behavioral disturbance, psychotic disturbance, mood disturbance, and anxiety | CPT/HCPCS: 99397 ==

== ENCOUNTER 2024-06-08 12:57 | Outpatient (REF) | payer MEDICARE, SELFPAY ==
--- OUTSIDE RECORDS SUMMARY | 2024-06-08 15:59 | XMS_ITS ---
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 Generated for Eliai maryjane/Sara/eTransmitting on:?06/08/2024 03:59 PM EDT
--- OUTSIDE RECORDS SUMMARY | 2024-06-08 15:59 | XMS_ITS | Patient Health Record ---
Author Organization [facility] Address [address] [place] [address] Care Team Providers Care Punch Card Operator Name Role Phone Suhas AGUILAR, Bipin Primary Care Provider Alice Danielle Unavailable [phone] Allergies Allergen (clinical drug ingredient) Drug/Non Drug Allergy documented on EMR Reaction Allergy Type Onset Date Status sulfamethoxazole / trimethoprim Bactrim Unknown Drug Allergy Active Reason For Referral No Information Social History Tobacco Use: Social History Observation Description Date Details (start date - stop date) Never Smoker NA - NA Tobacco use other than smoking: Question Answer Notes Are you an other tobacco user? No Tobacco Control (Standard) Question Answer Notes Tobacco use: Nonsmoker Additional Findings: Tobacco non-user Current no nsmoker AUDIT-C (Standard) Question Answer Notes Did you have a drink containing alcohol in the p ast year? No Points 0 Interpretation Negative Encounters Encounter Location Date Provider Diagnosis [facility] [address] [place] [address] 04/18/2024 Alice Seo Plan Of Treatment Next Appt Details Provider Name:Alice thakur, 06/15/2024 01:00:00 PM, [address] [facility], [place], [address], Insurance Providers Payer Name Payer Address Payer Phone Subscriber Number Group Number Insured Name Patient Relationship to Insured Coverage Start Date Coverage End Date [facility] 65 Medicare Preferred [address] [place] [address] [id number] Vita Tian Self - patient is the insured Medical (General) History Medical History History ICD Code Alzheimers disease Broken bones CAD (Cholesterol) Depression Diverticulosis Macular degeneration Surgical History Surgery Date(Month/Year) Stent 2018
== END 2024-06-08 12:58 | disposition home or self-care (01) ==
LOC: HO.MAMMO 12:57
PROVIDERS: PCP Internal Medicine; Visit Provider Internal Medicine
DX: Z12.31 Encounter for screening mammogram for malignant neoplasm of breast (principal)
CPT/HCPCS: 77063; 77067

== ENCOUNTER → 2024-06-08 13:00 | Outpatient (BNV) | payer MEDICARE, SELFPAY | PROVIDERS: PCP Internal Medicine; Visit Provider Internal Medicine | DX: Z12.31 Encounter for screening mammogram for malignant neoplasm of breast (principal) | CPT/HCPCS: 77063; 77067 ==

== ENCOUNTER 2024-07-04 11:38 | Outpatient (AMB) | payer MEDICARE, SELFPAY ==
--- NOTE | 2024-07-04 11:52 | MHC.OFFWIV ---
Intake Vital Signs 07/04/24 11:56 Weight 140 lb BP 122/70 Blood Pressure Location Lt brachial Position Sitting Pulse 67 Pulse Source Pulse Oximeter Temp 98.2 F Temp Source Oral Pulse Oximetry (%) 98 Intake Visit Reasons: EP ?UTI Intake Note: Patient here for burning on urination, abd pain, foul odor that has been present for about 3 days. Patient Tobacco Use Status: Former Tobacco user Allergies Sulfa (Sulfonamide Antibiotics) Allergy (Unknown, Verified 07/04/24 11:55) Unknown Do you need a note to return to daycare/school/sports/work: No HPI HPI Comments History of Present Illness Details This is an 88-year-old female with a past medical history of hypertension and dementia presenting for evaluation of urinary incontinence and strong smelling urine that she has had over the past 3 days per her son, who is 1 of her caretakers. There is no report of fevers, chills or change in mentation. Upon interview of the patient, she has no physical complaints at this time. [facility] Medical History CAD (coronary artery disease) Hyperlipidemia Surgical History History of foot surgery History of cataract surgery History of heart artery stent Family History (Updated 04/06/24 @ 10:15 by FRAN Jeffers) Mother No problems noted. Father No problems noted. Social History Housing: House Alcohol intake: never Patient Tobacco Use Status: Former Tobacco user Tobacco use type: Cigarette e-Cigarette/Vaping Use: Never Used Second Hand Smoke Exposure: Yes service: No Current occupational status: retired Cognitive needs: No Hearing needs: No Vision needs: Yes Review of Systems Const Unobtainable due to mental status (dementia -- oriented to name only) Physical Exam Vital Signs: Last Vital Signs Temp 98.2 F 07/04/24 11:56 Pulse 67 07/04/24 11:56 BP 122/70 07/04/24 11:56 Pulse Ox 98 07/04/24 11:56 Patient is afebrile. Const General: cooperative, healthy appearing, comfortable, no acute distress, alert and awake; No acute distress or ill appearing Nutritional Appearance: average body habitus Orientation/consciousness: oriented to person Limitations: no limitations GI Palpation (GI): Soft to palpation, nontender, no guarding, not rigid and No hepatosplenomegaly present General: Yes Bimanual renal exam normal bilaterally, Yes bladder normal to palpation and Yes no CVA tenderness Bimanual exam- vagina & uterus: bladder normal to palpation Back/Spine/Pelvis Back: no CVA tenderness Neuro General: oriented to person Psych Appearance: grossly normal Affect: normal affect Attitude: cooperative Assessment & Plan Assessment & Plan (1) Urinary incontinence: Comment: Patient was unable to provide urine sample in the office and therefore was sent home to collect urine. Patient is afebrile and there is no suprapubic or CVA tenderness on examination. Medications will not be empirically prescribed at this time. Code(s): R32 - Unspecified urinary incontinence Qualifiers: Urinary Incontinence type: unspecified incontinence Qualified Code(s): R32 - Unspecified urinary incontinence Plan: Patient's son will return with urine for urinalysis and urine culture. He is in agreement with this plan of care. Coding Level of Care Code Est Pt Level 3 (10243) Diagnoses Urinary incontinence, unspecified type R32 Urinary Incontinence type: unspecified incontinence Time Spent (min) 20
[2024-07-04 11:56] VITALS: BP 122/70; PULSE 67; TEMP 36.8; O2SAT 98
--- OUTSIDE RECORDS SUMMARY | 2024-07-04 14:10 | XMS_ITS ---
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 Generated for Eliai maryjane/Sara/eTransmitting on:?07/04/2024 02:10 PM EDT
--- OUTSIDE RECORDS SUMMARY | 2024-07-04 14:10 | XMS_ITS ---
Author Organization [facility] Address [address] [place] [address] Care Team Providers Care Test Eng Name Role Phone Bipin Dai MD Primary Care Provider Unavaila Alice Madden Unavailable [phone] Allergies Allergen (clinical drug ingredient) Drug/Non Drug Allergy documented on EMR Reaction Allergy Type Onset Date Status sulfamethoxazole / trimethoprim Bactrim Unknown Drug Allergy Active REASON FOR VISIT Painful Toe(s) Medications Medication SIG (Take, Route, Frequency, Duration) Notes Start Date End Date Status Baby Aspirin Active THC Free 20 MG/ML as directed Orally Active Lisinopril 10 MG 1 tablet Orally Once a day Active Metoprolol & Diet Manage Prod Active DULoxetine HCl 20 MG 1 capsule Orally On ce a day Active Caltrate 600 Active Multi Vitamin - 1 tablet Orally Once a day Active Social History Tobacco Use: Social History Observation [...] ast year? No Points 0 Interpretation Negative Problems Problem Type SNOMED Code ICD Code Onset Dates Problem Status W/U Status Risk Notes Problem Acquired hammer toe of right foot (4667833830483013) Other hammer toe(s) (acquired), right foot (M20.41) Active confirmed Problem Localized, primary osteoarthritis of the ankle and/or foot (584200293) Arthritis of joint of lesser toe, right (M19.071) Active confirmed Problem 1537653202 Hallux valgus of right foot (M20.11) Active confirmed Vital Signs Height 5ft 8in in 06/15/2024 Weight 140 lbs 06/15/2024 BMI 21.28 kg/m2 06/15/2024 Blood pressure systolic 130 mm Hg 06/16/19 25 Blood pressure diastolic 70 mm Hg 025 Encounters Encounter Location Date Provider Diagnosis [facility] [address] [address] 06/15/2024 Alice Seo Pain in right toe(s) M79.674 ; Other hammer toe(s) (acquired), right foot M20.41 ; Arthritis of joint of lesser toe, right M19.071 ; Subluxation of metatarsophalangeal joint of toe, initial encounter S93.149A and Hallux valgus of right foot M20.11 Assessments Encounter Date Diagnosis (ICD Code) Assessment Notes Treatment Notes Treatment Clinical Notes Section Notes 06/15/2024 Pain in right toe(s) (ICD-10 - M79.674) 06/15/2024 Other hammer toe(s) (acquired), right foot (ICD-10 - M20.41) 06/15/2024 Arthritis of joint o f lesser toe, right (ICD-10 - M19.071) 06/15/2024 Subluxation of metatarsophalangeal joint of toe, initial encounter (ICD-10 - S93.149A) 06/15/2024 Hallux valgus of rig ht foot (ICD-10 - M20.11) Plan Of Treatment Next Appt Details Follow Up: prn, Reason: Progress Notes * Vita SUNG MDOB:[birth year] (88 yo F)Acc No.[id number]:06/15/2024 Progress Notes Patient:?Vita SUNG Provider:?Alice Seo DPM :1935???Age:88 Y???Sex:Female D ate:06/15/2024 Address:[address] [place], [place] [id number] Pcp:Bipin Dai MD Subjective: * Chief Complaints: * ???Painful Toe(s) * HPI: ???Toe pain:?Nature:?tenderness.?Location:?Right foot, 2nd toe.?Duration:?several years.?Onset/Cause:?gradual, shoe gear.?Course:?intermittent.?Aggravated by:?any pressure, shoes.?Treatments:?rest/alter normal daily activity, change in shoes.?Misc:?Pt presents with son who provides history as pt has dementia.? * ROS:?General/Constitutional:?Nausea?denies.?Vomiting?denies.?Hunger Thirst?denies.?Loss appetite?denies.?Chills?denies.?Fatigue?denies.?Fever?denies.?Night Sweats?denies.?Unexplained weight loss?denies.?Unexplained weight gain?denies.?HEENTM:?Dentures?denies.?Dizziness?denies.?Glasses/contacts?denies.?Retinopathy?de nies.?Blurred/double vision?denies.?TMJ?denies.?Discharge/drainage?denies.?Implants?denies.?Sore throat?denies.?Dental implants?denies.?Hard of hearing ?denies.?Difficulty chewing/swallowing/speaking?denies.?Nose bleeds?denies.?Sore mouth?denies.?Respiratory:?On Oxygen?denies.?Pneumonia/pleurisy?denies.?Bronchitis?denies.?Emphysema?denies.?C oughing?denies.?Cough blood?denies.?Shortness of breath?denies.?Wheezing?denies.?Cardiovascular:?Pacemaker?denies.?MVP?denies.?WPW?denies.?CHF?denies.?Heart attack?denies.?Septal defect?denies.?Rapid beat?denies.?Chest pain ?denies.?Atrial Fib.?denies.?Murmur/Palpitations?denies.?Gastrointestinal:?Hemorrhoids?denies.?Stomach/Abdominal pain?denies.?Dark blood stool?denies.?Irritable bowel ?denies.?Constipation?denies.?Diarrhea?denies.?Hematology:?Swelling?denies.?Clots?denies.?Varicose Veins?denies.?Bruising?denies.?Bleeding problem?denies.?Genitourinary:?Blood urine?denies.?Frequent/Painfu/urination/bladder control?denies.?Kidney stones?denies.?Infection (UTI)?denies.?Nephropathy?denies.?sex trans dis (STD)?denies.?Prostate?denies.?Musculoskeletal:?Hammertoes?admits.?Bunions?denies.?Back Pain?denies.?Muscle Cramps/ Resting?denies.?Muscle cramps / walking?denies.?Generalized aches and pains?denies.?Weakness?denies.?Integ.:?Tucker?denies.?Scars?denies.?Corns/calluses?denies.?Ingrown nails?denies.?Painful nails?denies.?Open Sores?denies.?Rashes?denies.?Neurologic:?Difficulty sleeping?denies.?Brain disorder?denies.?Numbness?denies.?Balance trouble?denies.?Confusion?denies.?Fainting/blackouts?denies.?Tingling?denies.?Tr emors?denies.? * Medical History:? * Surgical History:?Stent 2018 * Hospitalization/Major Diagno stic Procedure:?Denies Past Hospitalization * Family History:?Mother: dece ased, diagnosed with Other malignant neoplasm of unspecified site.?Father: , diagnosed with Other malignant neoplasm of unspecified site, Unspecified heart disease. Siblings: diagnosed with Unspecified heart disease.? * Social History:?Tobacco Use:?Tobacco use other than smoking?Are you an other tobacco user??No ?Tobacco Control (Standard)?Tobacco use:?Nonsmoker ?Additional Findings: Tobacco non-user?Current nonsmoker ???Drugs/Alcohol:?Drugs?Have you used drugs other than those for medical reasons in the past 12 months??No ???Miscellaneous:?Caffeine: yes, 3 teas a wk. ?Children: yes, 5. ?Exercise: yes, walking. ?Marital status: . ?Occupation: Retired. ???Drug/Alcohol:?AUDIT-C (Standard)?Did you have a drink containing alcohol in the past year??No ?Points?0 ?Interpretation?Negative * Medications:?TakingCaltrate 600 Multi Vitamin - Tablet 1 tablet Orally Once a day Lisinopril 10 MG Tablet 1 tablet Orally Once a day THC Free 20 MG/ML Liquid as directed Orally Baby Aspirin DULoxetine HCl 20 MG Capsule Delayed Release Particles 1 capsule Orally Once a day Metoprolol & Diet Manage Prod Medication List reviewed and reconciled with the patientTaking Caltrate 600 Taking Multi Vitamin - Tablet 1 tablet Orally Once a day Taking Lisinopril 10 MG Tablet 1 tablet Orally Once a day Taking THC Free 20 MG/ML Liquid as directed Orally Taking Baby Aspirin Taking DULoxetine HCl 20 MG Capsule Delayed Release Particles 1 capsule Orally Once a day Taking Metoprolol & Diet Manage Prod Medication List reviewed and reconciled with the patient * Allergies:?Bactrimyes[Allerg ies Verified] Objective: * Vitals:?Ht: 5ft 8in, Wt: 140 , BMI: 21.28, Shoe size: 7.5-8, BP: 130/70 mm Hg, Ht-cm: 172.72 cm, Wt-k.5 kg. * Examination: ???General Examination: ?GENERAL APPEARANCE:?Reveals a pleasant, alert, well-nourished, well- developed, well hydrated individual, who demonstrates proper attention to hygiene/body habitus, and is in no acute distress, , Pt accompanied by, Son, who serves as, additional Historian.?Neurological: ?SENSORY:?Neurological exam reveals intact sensorium, pain sensation normal, vibration sensation intact, pinprick sensation is normal in the lower extremities, Pt denies, anesthesia, burning, paresthesia, tingling, B/L.?Vascular: ?DP PULSES (B):?1/4, B/L.?PT PULSES (B):?0/4, B/L.?CAPILLARY FILL TIME:?immediate, all digits, B/L.?TROPHIC CONDITION-TEXTURE/ELASTICITY/TURGOR/HAIR GROWTH (B):?normal, B/L.?TEMPERTURE GRADIENT (C):?warm to cool, proximal to distal, B/L.?PIGMENTATION:?pale, B/L.?EDEMA (C):?absent, B/L.?Dermatologic: ?SKIN FINDINGS:?Skin exam reveals Keratotic lesion(s) located at, Dorsal, PIPJ, T6.?Orthopedic: ?MUSCLE STRENGTH:?5/5 all groups in a symmetrical fashion , B/L.?BUNION:?Medially prominent 1st MPJ, RIGHT, Lateral tracking 1st MPJ nonreducible.?DIGITAL DEFORMITIES:?Digital contracture, PIPJ, 2-5 B/L, incompl-reducible with WB, or to push-up test,, MPJ Contracture/Dorsal subluxation with medial overlapping T6 over T5, with evidence of shoe producing skin irritation.?FOOTWEAR EVALUATION:? shoe gear properties exacerbate patients foot/toe deformity.? Assessment: * Assessment: 1.?Pain in right toe(s) - M7 9.674???2.?Other hammer toe(s) (acquired), right foot - M20.41 (Primary)???Specify :Chronic problem, Stable (1=3,2=4)???3.?Arthritis of joint of lesser toe, right - M19.071???4. Subluxation of metatarsophalangeal joint of toe, initial encounter - S93.149A???5.?Hallux valgus of right foot - M20.11??? Plan: * Treatment: * Procedure Codes:? * Preventive Medicine:? ??Counseling:?Discussion:?-03: Office or other outpatient visit for the evaluation and management of a new patient, which required a medically appropriate history and/or examination and LOW level of DECISION MAKING for: 1 STABLE ACUTE UNCOMPLICATED PROBLEM, 2 OR MORE MINOR PROBLEMS, OR 1 STABLE CHRONIC PROBLEM, THAT POSE(S) A LOW RISK FOR MORBIDITY/MORTALITY. The visit on the day of the encounter encompassed interpreting the data and educating the patient as to the nature of their condition, treatment options available according to their individual PMH, meds, allergies, and overall health/living conditions, as well as any potential risks or complications that may occur from a failure to adhere to, and participate in, the recommended course of therapy. The discussion included a complete verbal, and/or written explanation of the examination results, any x-rays taken, the proposed diagnosis, and outline of the treatment plan. A schedule for future care needs was also explained. The patient verbalized an understanding of the instructions at this time and agreed to be an active participant in their treatment. If the patient should think of any questions or concerns after the visit, I have encouraged the patient to call the office.?Digital Surgery:?We elected to try conservative treatment at the present time, due to the patients age, medical history, and circulatory constraints.?Digital Treatment:?HT- I explained to the patient the possible etiologies of Hammertoes, including genetics/foot type/shoegear/activity level/exercise routine and the risks/benefits of all the different treatment options for their pain including: No treatment at all, Rest, Ice, New/supportive/wider/deeper Shoe gear, Digital Padding/Strapping/Taping/Bracing/Gel protective sleeves, Foot/Ankle AFO Bracing, Stretching exercises, Deep Tissue Massage, Arch support/shoe inserts with splay metatarsal padding, and Custom orthoses. I insisted that any digital devices be removed daily and not worn overnight for safety. The patient is to carefully examine the toes daily for any skin irritation while using any splinting or padding device. The advantages and disadvantages of each option were discussed and the patients questions re: shoe gear, padding, custom vs prefabricated inserts, activity level, and consistency in home treatment regimens for optimal success were answered to their verbally confirmed satisfaction.?Shoe Gear Counseling:?The patient and I reviewed the types of shoes they should be wearing. My recommendation included obtaining a well-fitted shoe with a good supportive, non-foldable nor twistable sole, plenty of toe/room for the forefoot, and proper arch support. Based on todays examination, I recommended the patient look for new shoes, by having their feet professionally measured. We discussed that generally the best time of the day for a shoe fitting is the afternoon. Different shoes types and brands to best match the patients occupation and vocation were discussed. Specific brand selection will be up to the patient, their individual foot condition/deformities, and fit. The patient and I reviewed the standard new shoe break in period by wearing them for a few hours a day while checking for redness or sores as wear time is increased. The patient verbally confirmed to understanding the information discussed.? ??Screening/Special Tests:?Fall Risk?Screening:?No falls in the past year ?FALLS: Screening for Future Fall Risk?Have you had any falls with injury in the past year??No * Follow Up:?prn * Images: * Sign off status: Completed true * Provider:?ANDREA VelásquezM Date:?05/2024 Generated for Deangelo wesley/Sara/Krissy on:?07/04/2024 02:10 PM EDT History and Physical Notes * HPI (History of Present Illness) Category Sub-Category Detail Notes Category Not es Toe pain Nature: tenderness Location: Right foot, 2nd toe Duration: several years Onset/Cause: gradual, shoe gear Course: intermittent Aggravated by: any pressure, shoes Treatments: rest/alter normal da chris activity, change in shoes Misc: Pt presents with son who provides history as pt has dementia Examination Category Sub-Category Detail Notes Category Not es Neurological SENSORY: Neurological exa m reveals intact sensorium, pain sensation normal, vibration sensation intact, pinprick sensation is normal in the lower extremities, Pt denies, anesthesia, burning, paresthesia, tingling, B/L Dermatologic SKIN FINDINGS: Skin exam reveal s Keratotic lesion(s) located at, Dorsal, PIPJ, T6 Orthopedic BUNION: Medially promine nt 1st MPJ, RIGHT, Lateral tracking 1st MPJ nonreducible FOOTWEAR EVALUATION: shoe gear propertie s exacerbate patients foot/toe deformity DIGITAL DEFORMITIES: Digital contracture , PIPJ, 2-5 B/L, incompl-reducible with WB, or to push-up test,, MPJ Contracture/Dorsal subluxation with medial overlapping T6 over T5, with evidence of shoe producing skin irritation MUSCLE STRENGTH: 5/5 all groups in a symmetrical fashion , B/L General Examination GENERAL APPEARANCE: Reveals a pleasant, alert, well- nourished, well-developed, well hydrated individual, who demonstrates proper attention to hygiene/body habitus, and is in no acute distress, , Pt accompanied by, Son, who serves as, additional Historian Vascular DP PULSES (B): 1/4, B/L PT PULSES (B): 0/4, B/L CAPILLARY FILL TIME: immediate, all digi ts, B/L TEMPERTURE GRADIENT (C): warm to cool, p roximal to distal, B/L TROPHIC CONDITION-TEXTURE/ELASTICITY/TURGOR/HAIR GROWTH (B): normal, B/L EDEMA (C): absent, B/L PIGMENTATION: pale, B/L
--- OUTSIDE RECORDS SUMMARY | 2024-07-04 14:10 | XMS_ITS | Patient Health Record ---
Author Organization [facility] Address [address] [place] [address] Care Team Providers Care Brewery Worker Name Role Phone Suhas AGUILAR, Bipin Primary Care Provider UnavailAlice Armstrong Unavailable [phone] Allergies Allergen (clinical drug ingredient) Drug/Non Drug Allergy documented on EMR Reaction Allergy Type Onset Date Status sulfamethoxazole / trimethoprim Bactrim Unknown Drug Allergy Active Reason For Referral No Information Medications Medication SIG (Take, Route, Frequency, Duration) Notes Start Date End Date Status Caltrate 600 Active Baby Aspirin Active THC Free 20 MG/ML as directed Orally Active Lisinopril 10 MG 1 tablet Orally Once a day Active Multi Vitamin - 1 tablet Orally Once a day Active Metoprolol & Diet Manage Prod Active DULoxetine HCl 20 MG 1 capsule Orally On ce a day Active Social History Tobacco Use: [...] Problem Acquired hammer toe of right foot (1562973707454556) Other hammer toe(s) (acquired), right foot (M20.41) Active confirmed Problem [id number] Hallux valgus of right foot (M20.11) Active confirmed Problem Localized, primary osteoarthritis of the ankle and/or foot (760591749) Arthritis of joint of lesser toe, right (M19.071) Active confirmed Vital Signs Blood pressure diastolic 70 mm Hg 06/15/2024 Height 5ft 8in in 06/15/2024 Blood pressure systolic 130 mm Hg 06/15/2024 Weight 140 lbs 06/15/2024 BMI 21.28 kg/m2 06/15/2024 Encounters Encounter Location Date Provider Diagnosis [address] [address] 06/15/2024 Alice Seo Pain in right toe(s) M79.674 ; Other hammer toe(s) (acquired), right foot M20.41 ; Arthritis of joint of lesser toe, right M19.071 ; Subluxation of metatarsophalangeal joint of toe, initial encounter S93.149A and Hallux valgus of right foot M20.11 [facility] [address] [place] [address] [facility]/18/2024 [facility] [address] 06/15/2024 Alice Seo Assessments Encounter Date Diagnosis (ICD Code) Assessment [...] foot (ICD-10 - M20.11) Plan Of Treatment No Information Insurance Providers Payer Name Payer Address Payer Phone Subscriber Number Group Number Insured Name Patient Relationship to Insured Coverage Start Date Coverage End Date [employer] 65 Medicare Preferred [address] [place] [address] [id number] Vita Tian Self - patient is the insured Medical (General) History Medical History History ICD Code Alzheimers disease Broken bones CAD (Cholesterol) Depression Diverticulosis Macular degeneration Surgical History Surgery Date(Month/Year) Stent 2018
--- OUTSIDE RECORDS SUMMARY | 2024-07-04 14:10 | XMS_ITS ---
Author Organization [facility] Address [address] [place] [address] Care Team Providers Care Power Transformer Inspector Name Role Phone Bipin Dai MD Primary Care Provider Unavaila Alice Madden Unavailable [phone] REASON FOR VISIT buy gel tube Encounters Encounter Location Date Provider Diagnosis [address] [address] 06/15/2024 Alice Seo Plan Of Treatment No Information Progress Notes * Vita SUNG MDOB:[birth year] (88 yo F)Acc No.[id number]:06/15/2024 Patient:?Vita SUNG :1935???Age:88 Y???Sex:Female Address:[address] [place] [address] * true * Date:? Generated for Eliai maryjane/Sara/eTransmitting on:?07/04/2024 02:10 PM EDT
== END 2024-07-04 12:26 | disposition home or self-care (01) ==
PROVIDERS: PCP Internal Medicine; Visit Provider Physician Assistant
DX: R32 Unspecified urinary incontinence (principal)

== ENCOUNTER 2024-07-04 13:35 | Outpatient (REF) | payer MEDICARE, SELFPAY | END 2024-07-04 13:36 | disposition home or self-care (01) | LOC: HO.HMGCLNP 13:35 | PROVIDERS: PCP Internal Medicine; Visit Provider Physician Assistant | DX: R32 Unspecified urinary incontinence (principal) | CPT/HCPCS: 87086; 87088; 87186; 99212 ==

== ENCOUNTER 2024-08-25 11:26 | Outpatient (AMB) | payer MEDICARE, SELFPAY ==
--- NOTE | 2024-08-25 11:29 | MHC.PC.OV ---
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: No Analysis Or Research Safety Inspector: Present Accompanied by: Son Allergies Sulfa (Sulfonamide Antibiotics) Allergy (Unknown, Verified 08/25/24 11:49) Unknown Medication List - Last Reconciled 08/25/24 by Ara Wahl PA-C aspirin 81 mg PO DAILY duloxetine 20 mg PO DAILY lisinopril 10 mg PO DAILY metoprolol tartrate 12.5 mg (1/2 x 25 mg) PO Q12H Tobacco use date assessed: 08/25/24 Fall risk assessment: No Falls in past year Last assessed Fall Risk: 08/25/24 Dental Screening Dental Screen Date: 04/06/[address] Dai HPI Details 88 year old female with past medical history of hyperlipidemia, hypertension, CAD, dementia last seen by Dr. Dai 03/2024 coming in for CALISTA. In review of the notes, patient was seen in walk in clinic 06/2024 for question of UTI treated with Keflex. Presenting with hypercholesterolemia. The patient has a history of elevated cholesterol levels, with recent measurements showing a cholesterol level of 147 mg/dL. The patient has a coronary artery stent, and the target LDL cholesterol level is less than 70 mg/dL. Cholesterol levels have fluctuated over the years, with a noted increase from 139 mg/dL in 2021 to 147 mg/dL currently. The patient has not been on statin therapy previously, and there is a discussion about starting atorvastatin to manage cholesterol levels. [facility] Medical History CAD (coronary artery disease) Hyperlipidemia Surgical History History of foot surgery History of cataract surgery History of heart artery stent Family History Mother No problems noted. Father No problems noted. Social History Housing: House Alcohol intake: never Patient Tobacco Use Status: Former Tobacco user Tobacco use type: Cigarette e-Cigarette/Vaping Use: Never Used Second Hand Smoke Exposure: Yes service: No Current occupational status: retired Cognitive needs: No Hearing needs: No Vision needs: Yes Questionnaire Thrive Questionnaire Date Thrive assessed: 04/06/24 I am a: Patient What is your living situation today?: I have a steady place to live Within the past 12 months, did the food you bought not last and you didn't have the money to get more?: Sometimes True Within the past 12 months, did you worry whether your food would run out before you got money to buy more?: Never true Do you have trouble paying for medicines?: No Do you have trouble getting transportation to medical appointments?: Yes Do you have trouble paying your heating and electricity bill?: No Do you have trouble taking care of your child, family member or friend?: No Do you have trouble with day-to-day activities such as bathing, preparing meals, shopping, managing finances, etc.?: No Are you currently unemployed and looking for a job?: No Are you interested in more education?: No Please select the resources that you would like help with: Care for elder or disabled Currently or been in a relationship where the following occur: No concerns reported THRIVE Score: 2 JULIAN-7 AMB Questionnaire JULIAN-7 Date JULIAN - 7 assessed: 04/06/24 Source: Developed by Drs. Sharan Vuong, Reina Elaine, Ej Major and colleagues, with an educational joselo from [employer]. Review of Systems Const Denies body aches, Denies chills, Denies fever(s), Denies headache(s) and Denies poor appetite Eyes Reports no additional complaints ENT Denies dysphagia, Denies dizziness, Denies headache(s) and Denies odynophagia Card Denies chest pain, Denies syncope, Denies edema, Denies irregular heart rhythm, Denies lightheadedness and Denies dyspnea Resp Denies cough and Denies dyspnea GI Denies abdominal pain, Denies constipation, Denies dysphagia, Denies diarrhea, Denies nausea, Denies odynophagia and Denies vomiting Reports no additional complaints Musc Reports no additional complaints and Denies abnormal gait Skin/Breast Reports system reviewed and no additional complaints, except as documented Neuro Denies abnormal gait, Denies dizziness, Denies syncope and Denies headache(s) Psych Reports no additional complaints Physical exam (Primary Care) Vital Signs: Last Vital Signs Temp 96.8 F 08/25/24 11:30 Pulse 54 08/25/24 11:30 BP 140/80 H 08/25/24 11:30 Pulse Ox 96 08/25/24 11:30 Oxygen Delivery Method Room Air 08/25/24 11:30 BMI result Body Mass Index 22.5 Tobacco/Smoking Status: Tobacco use Status Tobacco use date assessed 08/25/24 08/25/24 11:35 Patient Tobacco Use Status Former Tobacco user 08/25/24 11:35 Tobacco use type Cigarette 08/25/24 11:35 e-Cigarette/Vaping Use Never Used 08/25/24 11:35 Thrive Assessment: Date of Thrive Assessment Date Thrive assessed 04/06/24 08/25/24 11:35 Currently or been in a relationship where the following occur: No concerns reported Const General: cooperative, healthy appearing, comfortable and no acute distress Orientation/consciousness: patient oriented x3 HENMT Head: Yes normocephalic Ears: hearing grossly normal bilaterally General nose exam: Normal external nose present Eyes General: appearance normal, both eyes and all related structures Conjunctivae: conjunctivae normal Neck Neck: Yes full ROM and Yes no lymphadenopathy Resp Effort & Inspection: normal respiratory effort Auscultation: clear to auscultation bilaterally, no crackles, no rales, no rhonchi and no wheezes Cardio Rate: regular rate Rhythm: regular rhythm Skin General skin exam: no rashes or lesions noted Neuro General: patient oriented x3 Gait exam (Neuro): Normal gait present Extrem General: Yes normal to inspection, Yes full ROM and No edema Psych Affect: normal affect Attitude: cooperative Insight: Good insight present (Psych) Judgement: Good judgement present (Psych) Coding Level of Care Code Est Pt Level 3 (77762) Diagnoses Urinary incontinence, unspecified type R32 Urinary Incontinence type: unspecified incontinence Hypertension I10 Dementia F03.90 CAD (coronary artery disease) I25.10 Hyperlipidemia E78.5 Assessment & Plan Assessment & Plan (1) Urinary incontinence: Code(s): R32 - Unspecified urinary incontinence Category: Medical Qualifiers: Urinary Incontinence type: unspecified incontinence Qualified Code(s): R32 - Unspecified urinary incontinence Plan: Discussed hygeine when wearing pads and diapers. Discussed how to avoid further urinary tract infections. (2) Hypertension: Code(s): I10 - Essential (primary) hypertension Category: Medical Plan: Continue on current blood pressure medication. Avoid salt intake and encourage healthy diet and regular exercise. Mildly elevated today plan to monitor blood pressure at home and bring log to next visit. Advised patient to reach out if blood pressure at home as above 140/90. (3) Dementia: Code(s): F03.90 - Unspecified dementia, unspecified severity, without behavioral disturbance, psychotic disturbance, mood disturbance, and anxiety Category: Medical Plan: Patient has a history of dementia we discussed the possible neurology referral today which was declined. Can consider referral going forward (4) CAD (coronary artery disease): Comment: STEMI March 2017 Code(s): I25.10 - Atherosclerotic heart disease of [place] coronary artery without angina pectoris Category: Medical Plan: Advised good control of cholesterol, diabetes and blood pressure. She is currently on aspirin 81 mg. Plan to add statin to medication regimen for better control. (5) Hyperlipidemia: Code(s): E78.5 - Hyperlipidemia, unspecified Category: Medical Plan: Avoid foods that are high in cholesterol such as red meat, fried foods, eggs and baked goods. Triglyceride goal of less than 150 and LDL goal of less than 70. Discussed with patient and her son today the risks and benefits of the statin therapy. It was decided upon we would initiate a trial of atorvastatin as LDL is well above her goal of 70. Plan to start on atorvastatin 10 mg. Discussed at length side effects of this medication plan to obtain repeat blood work in 3 months. Advised patient to reach out if any issue with this medication. Plan The plan for managing hypercholesterolemia includes initiating atorvastatin therapy, starting at a low dose to minimize potential side effects such as muscle aches. The patient will be monitored for any adverse reactions, and liver function tests will be conducted regularly to ensure safety. The goal is to reduce LDL cholesterol to less than 70 mg/dL due to the patient's history of coronary artery disease. Blood pressure management will continue with home monitoring, aiming for readings below 140/90 mmHg. The patient is advised to report any significant changes in blood pressure or symptoms such as dizziness or dyspnea. Follow-up appointments will be scheduled every three months to reassess cholesterol levels and adjust treatment as necessary. This note was constructed using voice recognition software. While every effort has been made to ensure accuracy and biztalk software developer, still areas may have been included sometimes these areas may affect the content or meeting of the given symptoms. Total time spent caring for the patient today was 30 minutes. This includes time spent before the visit reviewing the chart, time spent during the visit, and time spent after the visit and documentation. Patient was informed and verbally consented to the use of an ambient scribe for clinic note documentation during this visit. Orders: Orders Lipid Panel 3 Months E78.00 - Pure hypercholesterolemia, unspecified Comprehensive Met. Panel Today I25.10 - Atherosclerotic heart disease of [place] coronary artery without angina pectoris, Z00.00 - Encounter for general adult medical examination without abnormal findings Medications: New atorvastatin 10 mg PO BEDTIME 90 tabs 0RF
[2024-08-25 11:30] VITALS: BP 140/80; PULSE 54; TEMP 36; O2SAT 96; BMI 22.5
--- OUTSIDE RECORDS SUMMARY | 2024-08-25 12:25 | XMS_ITS | Patient Health Record ---
Author Organization [facility] Address [address] [place] [address] Care Team Providers Care Hourly Associate Name Role Phone Suhas AGUILAR, Bipin Primary Care Provider UnavailAlice Armstrong Unavailable [phone] Allergies Allergen (clinical drug ingredient) Drug/Non Drug [...] Problem Acquired hammer toe of right foot ([id number]) Other hammer toe(s) (acquired), right foot (M20.41) Active confirmed Problem [id number] Hallux valgus of right foot (M20.11) Active confirmed Problem Arthritis of joint of lesser toe, right (M19.071) Active confirmed Vital Signs Blood pressure diastolic 70 mm Hg 06/15/2024 Height 5ft 8in in 06/15/2024 Blood pressure systolic 130 mm Hg 06/15/2024 Weight 140 lbs 06/15/2024 BMI 21.28 kg/m2 06/15/2024 Encounters Encounter Location Date Provider Diagnosis [address] [address] 06/15/2024 Alice Seo Pain in right toe(s) M79.674 ; Other hammer toe(s) (acquired), right foot M20.41 ; Arthritis of joint of lesser toe, right M19.071 ; Subluxation of metatarsophalangeal joint of toe, initial encounter S93.149A and Hallux valgus of right foot M20.11 [facility] [address] [place] [address] 04/18/2024 Alice Seo [address] [address] 06/15/2024 Alice Seo Assessments Encounter Date Diagnosis [...] Date [employer] Medicare Preferred [address] [place] [address] [id number] Vita Tian Self - patient is the insured Medical (General) History Medical History History ICD Code Alzheimers disease Broken bones CAD (Cholesterol) Depression Diverticulosis Macular degeneration Surgical History Surgery Date(Month/Year) 2017
== END 2024-08-25 12:21 | disposition home or self-care (01) ==
DX: R32 Unspecified urinary incontinence (principal); I10 Essential (primary) hypertension; F03.90 Unspecified dementia, unspecified severity, without behavioral disturbance, psychotic disturbance, mood disturbance, and anxiety; I25.10 Atherosclerotic heart disease of native coronary artery without angina pectoris; E78.5 Hyperlipidemia, unspecified